=== PATIENT | male | born 2000 | race Caucasian/White ===

== ENCOUNTER 2019-12-10 16:37 | Emergency (ER) | payer SELFPAY ==
--- NOTE | 2019-12-10 16:58 | UC ---
UC General HPI - HPI Summary HPI Summary: 1 hour ago - kidney stone pain Right side back pain Painful to urinate No fever +Nausea. No vomiting No diarrhea or belly pain 1 year ago had surgery for his kidney stones - - History of Current Complaint Chief Complaint: UCBackPain Stated Complaint: LOWER BACKPAIN Time Seen by Provider: 12/10/19 16:50 Pain Intensity: 8 - Allergy/Home Medications Allergies/Adverse Reactions: Allergies Allergy/AdvReac Type Severity Reaction Status Date / Time No Known Allergies Allergy Verified 12/10/19 16:52 Home Medications: Home Medications Ibuprofen TAB* [Motrin TAB* 600 MG] 1 tab PO DAILY 12/10/19 [History Confirmed 12/10/19] PMH/Surg Hx/FS Hx/Imm Hx Previously Healthy: Yes Respiratory History: Asthma GI/ History: Kidney Stones - Surgical History Surgical History: Yes Surgery Procedure, Year, and Place: stent placement to right uretter for kidney stone in [place] - Social History Alcohol Use: None Substance Use Type: None Smoking Status (MU): Never Smoked Tobacco Review of Systems All Other Systems Reviewed And Are Negative: Yes Physical Exam Triage Information Reviewed: Yes Appearance: Well-Appearing, Other: - standing due to pain Vital Signs: Initial Vital Signs Resp 17 12/10/19 16:47 Vital Signs Reviewed: Yes Eyes: Positive: Conjunctiva Clear Respiratory: Positive: Lungs clear, Normal breath sounds Cardiovascular: Positive: RRR, No Murmur Abdomen Description: Positive: Nontender, Soft, CVA Tenderness (R) Course/Dx - Course Course Of Treatment: This is a 18 yr old with right flank pain and hematuria U/A: trace blood in urine No U/S or CT scan here in urgent care - needs further evaluation with imaging. Patient here with friends who are able to drive him to [facility] ED Sign out given to Dr. Limon at [facility] ED Plan Because we are not able to do any imaging to determine if you have a kidney stone and/or how large it is, recommend you go directly to [facility] ER for further evaluation - Diagnoses Provider Diagnosis: Kidney stone on right side Discharge ED - Sign-Out/Discharge Documenting (check all that apply): Patient Departure All imaging exams completed and their final reports reviewed: No Studies - Discharge Plan Condition: Fair Disposition: HOME-RECOMMEND TO ED Patient Education Materials: Kidney Stones (ED) Referrals: [facility] PHYSICIAN REFERRAL [Outside] No Primary Care Phys,NOPCP [Primary Care Provider] - Additional Instructions: Because we are not able to do any imaging to determine if you have a kidney stone and/or how large it is, recommend you go directly to [facility] ER for further evaluation - Billing Disposition and Condition Condition: FAIR Disposition: Home-Recommend to ED
[2019-12-10 17:15] VITALS: BP 141/82
== END 2019-12-10 17:15 | disposition home health service (06) ==
LOC: UCEAST 16:37
DX: N20.0 Calculus of kidney (principal); Z87.442 Personal history of urinary calculi
CPT/HCPCS: 81003; 99201; G0463

== ENCOUNTER 2019-12-10 17:27 | Emergency (ER) | payer SELFPAY ==
[2019-12-10] MEDS ORDERED: Morphine 4 MG/ML VIAL (1 ml) 4 MG/ML VIAL IV ONE (17:42)
[2019-12-10] MEDS ORDERED: Ondansetron INJ* 2 MG/ML VIAL IV ONE (17:42)
[2019-12-10] MEDS ORDERED: NS 0.9% 1000 ML** 1,000 ML IV ONE (17:43)
--- NOTE | 2019-12-10 17:52 | ED ---
GI/ HPI - HPI Summary HPI Summary: 18 year old male presents with right-sided flank pain today. pain started at 3 PM. He states he has a history of kidney stones and this feels the still same. Last time he required a stent which was last year. Patient just moved to the area and does not have a urologist. He admits to nausea but no vomiting. Denies any dysuria. States that he's had some hesitancy. No fevers. No diarrhea or constipation. No previous abdominal surgeries beside ureteral stent placement. He does have a family history of kidney stones. He has history asthma. He took some ibuprofen prior to arrival. Pain is 7 out of 10. No testicular pain. - History of Current Complaint Chief Complaint: EDFlankPain Time Seen by Provider: 12/10/19 17:37 Stated Complaint: LEFT SIDE PAIN PER PT Pain Intensity: 5 - Allergy/Home Medications Allergies/Adverse Reactions: Allergies Allergy/AdvReac Type Severity Reaction Status Date / Time No Known Allergies Allergy Verified 12/10/19 17:31 Home Medications: Home Medications Ibuprofen TAB* [Motrin TAB* 600 MG] 1 tab PO DAILY 12/10/19 [History Confirmed 12/10/19] Ondansetron ODT TAB* [Zofran 4 MG Odt TAB*] 4 mg PO Q6H PRN #16 tab.odt [Rx] Sulfamethox/Trimethoprim DS* [Bactrim DS 800/160 TAB*] 1 tab PO BID #19 tab [Rx] Tamsulosin CAP* [Flomax CAP*] 0.4 mg PO DAILY #7 cap 12/10/19 [Rx] oxyCODONE/Acetamin 5/325 MG* [Percocet 5/325 TAB*] 1 tab PO Q6H PRN #16 tab MDD 4 12/10/19 [Rx] PMH/Surg Hx/FS Hx/Imm Hx Endocrine/Hematology History: Denies: Hx Diabetes, Hx Thyroid Disease Cardiovascular History: Denies: Hx Hypertension Respiratory History: Reports: Hx Asthma Denies: Hx Chronic Obstructive Pulmonary Disease (COPD) - Surgical History Surgery Procedure, Year, and Place: stent placement to right uretter for kidney stone in [place] Infectious Disease History: No Infectious Disease History: Denies: Hx Hepatitis, Traveled Outside the [place] in Last 30 Days - Family History Known Family History: Positive: Non-Contributory - Social History Alcohol Use: None Substance Use Type: Reports: None Smoking Status (MU): Never Smoked Tobacco Review of Systems Negative: Fever Negative: Chest Pain Negative: Shortness Of Breath Positive: Nausea. Negative: Vomiting Positive: flank pain All Other Systems Reviewed And Are Negative: Yes Physical Exam Triage Information Reviewed: Yes Vital Signs On Initial Exam: Initial Vitals Temp Pulse Resp BP Pulse Ox 97.5 F 68 19 143/83 98 12/10/19 17:29 12/10/19 17:29 12/10/19 17:29 12/10/19 17:29 12/10/19 17:29 Vital Signs Reviewed: Yes Appearance: Positive: Well-Appearing Skin: Positive: Warm, Dry Head/Face: Positive: Normal Head/Face Inspection Eyes: Positive: Normal, Conjunctiva Clear ENT: Positive: Pharynx normal Respiratory/Lung Sounds: Positive: Clear to Auscultation, Breath Sounds Present Cardiovascular: Positive: Normal, RRR Abdomen Description: Positive: Soft, CVA Tenderness (R), Other: - tenderness right side abd, draining pilondial abscess Bowel Sounds: Positive: Present Musculoskeletal: Positive: Normal Neurological: Positive: Normal Psychiatric: Positive: Normal Procedures - Sedation Patient Received Moderate/Deep Sedation with Procedure: No Diagnostics - Vital Signs Vital Signs Temp Pulse Resp BP Pulse Ox 12/10/19 17:29 97.5 F 68 19 143/83 98 - Laboratory Result Diagrams: 12/10/19 17:55 12/10/19 17:55 Lab Statement: Any lab studies that have been ordered have been reviewed, and results considered in the medical decision making process. - CT abd CT Interpretation Completed By: Radiologist Summary of CT Findings: IMPRESSION: 1. There is hydronephrosis of the right kidney, with hydroureter. An obstructing calculus is identified within the distal right ureter measuring 6 mm. Re-Evaluation - Re-Evaluation First Eval Re-Evaluation Time: 19:17 Change: Improved Comment: pain improved, abscess is draining where seen on CT. GIGU Course/Dx - Course Course Of Treatment: 18 year old male presents with right-sided flank pain today. pain started at 3 PM. He states he has a history of kidney stones and this feels the still same. Last time he required a stent which was last year. Patient just moved to the area and does not have a urologist. He admits to nausea but no vomiting. Denies any dysuria. States that he's had some hesitancy. No fevers. No diarrhea or constipation. No previous abdominal surgeries beside ureteral stent placement. He does have a family history of kidney stones. He has history asthma. He took some ibuprofen prior to arrival. Pain is 7 out of 10. No testicular pain. On exam tenderness over right flank. wbc normal. urine hematuria. CT shows hydronephorosis with 6mm stone. renal function normal. Ct also shows potential abscess. area is draining where abscess is seen. will place on bactrim. told follow up with urology. patient understand and agrees with plan. - Diagnoses Differential Diagnoses - Male: Pyelonephritis, Ureteral Calculi, Urinary Tract Infection Provider Diagnoses: Ureteral stone, Pilonidal abscess Discharge ED - Sign-Out/Discharge Documenting (check all that apply): Patient Departure - Discharge Plan Condition: Good Disposition: HOME Prescriptions: Ondansetron ODT TAB* [Zofran 4 MG Odt TAB*] 4 mg PO Q6H PRN #16 tab.odt PRN Reason: Nausea oxyCODONE/Acetamin 5/325 MG* [Percocet 5/325 TAB*] 1 tab PO Q6H PRN #16 tab MDD 4 PRN Reason: Pain - Severe Sulfamethox/Trimethoprim DS* [Bactrim DS 800/160 TAB*] 1 tab PO BID #19 tab Tamsulosin CAP* [Flomax CAP*] 0.4 mg PO DAILY #7 cap Patient Education Materials: Abscess (ED), Ureteral Stones (ED) Referrals: No Primary Care Phys,NOPCP [Primary Care Provider] - Vinny Jackson MD [Medical Doctor] - Julia Ghosh MD [Medical Doctor] - Additional Instructions: Take ibuprofen every 6 hours and percocet as needed every 6 hours Take Zofran every 6 hours for nausea as needed Take Flomax daily starting tomorrow, first dose given in ED until stone expelled , make sure stand up slowly take bactrim twice a day for 10 days apply heat to abscess Follow up with urology, call office tomorrow for appointment Strain urine until collect stone A referral was given to surgery if no improvement in abscess Return to ED if unable to manage pain at home, develop fever, or any new or worsening symptoms - Billing Disposition and Condition Condition: GOOD Disposition: Home - Attestation Statements Provider Attestation: I was available for consultation for this patient. I did not evaluate the patient or participate in any medical decision making or disposition decisions unless I am specifically named in the chart as having consulted on the patient. If I have consulted on the patient, please see my own ED note on the patient encounter. Claudia Nova MD
[2019-12-10 18:04] LABS: ABS Basophils 0.1 10^3/ul (0-0.2); ABS Eosinophils 0.1 10^3/ul (0-0.6); ABS Lymphocytes 2.4 10^3/ul (1.0-4.8); ABS Monocytes 0.7 10^3/ul (0-0.8); ABS Neutrophils 6.7 10^3/ul (1.5-7.7); Eosinophil % 0.7 %; Hematocrit 41 % (42-52); Mean Corpuscular HGB Conc 34 g/dL (31-36); Mean Corpuscular Hemoglobin 30 pg (27-31); Mean Corpuscular Volume 86 fL (80-94); Mean Platelet Volume 10.1 fL (7.4-10.4); Platelet Count 220 10^3/uL (150-450); Red Blood Count 4.72 10^6 /uL (4.18-5.48); Red Cell Distribution Width 14 % (10-15); White Blood Count 9.9 10^3/uL (3.5-10.8)
[2019-12-10 18:04] LABS: Urine Appearance Clear; Urine Bilirubin Negative (Negative); Urine Blood 1+ (Negative); Urine Color Yellow; Urine Glucose Negative (Negative); Urine Ketones Negative (Negative); Urine Nitrite Negative (Negative); Urine Protein Negative (Negative); Urine Specific Gravity 1.021 (1.010-1.030); Urine Urobilinogen Negative (Negative)
[2019-12-10 18:21] LABS: Albumin/Globulin Ratio 1.4 (1-3); BUN/Creatinine Ratio 17.5 (8-20); C Reactive Protein 1.85 mg/L (<8.01); EGFR African American 119.4 (>60); EGFR Non-African American 98.7 (>60); Globulin 2.8 g/dL (2-4); Potassium 3.8 mmol/L (3.5-5.0); Total Bilirubin 0.4 mg/dL (0.2-1.0); Total Protein 6.8 g/dL (6.4-8.9)
[2019-12-10 18:31] LABS: Urine Bacteria Absent (Absent); Urine Red Blood Cell 3+(>10/hpf) (Absent); Urine White Blood Cell Trace(0-5/hpf) (Absent)
[2019-12-10] MEDS ORDERED: Tamsulosin CAP* 0.4 MG PO ONE (18:59)
[2019-12-10] MEDS ORDERED: Sulfamethox/Trimethoprim DS 800/160* TAB PO ONE (18:59)
[2019-12-10] MEDS ORDERED: O ndansetron ODT 4MG 5TAB PRPK 4 MG PAK PO ONE (19:00)
[2019-12-10 19:12] VITALS: BP 125/67
== END 2019-12-10 19:45 | disposition home or self-care (01) ==
LOC: ED 17:27
DX: N20.1 Calculus of ureter (principal); L05.01 Pilonidal cyst with abscess; R10.84 Generalized abdominal pain; Z88.2 Allergy status to sulfonamides
CPT/HCPCS: 36415; 74176; 80053; 81003; 81015; 85025; 86140; 87086; 96361; 96374; 96375; 99284; A9270-GY; J2270; J2405